=== PATIENT | female | born 1980 | race African-American/Black ===

== ENCOUNTER → 2018-04-07 | Day surgery (SDC) | payer OTHER ==
--- NOTE | 2018-04-10 16:05 | PATH ---
Surgical Pathology Report Patient Name: ISHAN JAFFE [facility]. Rec. #: [id number] /Age/Gender: 1980 (Age: 38) / F Account: [id number] Location: [facility] [[email or web address]] Taken: 04/07/2018 Received: 04/07/2018 Reported: 04/10/2018 Physicians: Hoda Maza M.D. Specimen(s) Received RIGHT BREAST 7-8:00 0.69CM MASS Clinical History Nonpalpable lesion Ultrasound findings: Probably benign Final Diagnosis RIGHT BREAST 7- 8:00 0.7CM MASS ULTRASOUND GUIDED CORE BIOPSY: BREAST TISSUE WITH STROMAL FIBROSIS. Electronically Signed Sarah Devine M.D. Gross Description Received in formalin labeled "right 7-8:00," are 6 abad-yellow, cylindrical portions of fibroadipose tissue ranging from 0.3-0.8 cm in length and averaging 0.1 cm in diameter. The specimens are submitted in toto in one cassette. Time to formalin fixation: Less than one minute Total formalin fixation time: Approximately 8 hours. /04/07/2018 saudi/04/07/2018
== END | disposition home or self-care (01) ==
LOC: JRADUS-SUR 08:13
PROVIDERS: ATTEND Obstetrics & Gynecology
PROC: 0HBT3ZX Excision of Right Breast, Percutaneous Approach, Diagnostic (ICD-10-PCS; principal; 2018-04-07)
DX: N60.31 Fibrosclerosis of right breast (principal)
CPT/HCPCS: 19083; 88305-TC